=== PATIENT | male | born 1935 | race Caucasian/White ===

== ENCOUNTER → 2017-03-25 | Outpatient (CLI) | payer MEDICARE, BC ==
[~2017-03-25] MED LIST: ASPIR-LOW81 MG PO; ASPIRIN E.C. 8181 MG PO; CIPRO 250MG TA250 MG PO; CIPRO 500MG TA500 MG PO; COREG 6.256.25 MG/TA PO; FISH OIL CONC1000 MG PO; FLOMAX 0.40.4 MG/CAP PO; GLUCOPHAGE500 MG/TAB PO; HCTZ 25MG TAB25 MG PO; HCTZ 25MG25 MG PO; IBUPROFEN 200200 MG PO; LISINOPRIL20 MG PO; NORCO; OXYCODONE HCL10 MG PO; PRILOSEC 20MG20 MG PO; PYRIDIUM 100MG100 MG PO; SIMVASTATIN10 MG PO; VALIUM 2MG T2 MG/TAB PO; VITAMIN B12 PO; VITAMIN B121000 MCG PO; VITAMIN B12500 MCG PO; VITAMIN D1000 IU PO; VITAMIN D2000 I1 PO; ZESTRIL 20MG TA20 MG PO; ZOCOR 10MG10 MG PO; b 12
== END ==
LOC: COL.RAD 09:37
DX: I71.4 Abdominal aortic aneurysm, without rupture (principal); K44.9 Diaphragmatic hernia without obstruction or gangrene; J47.9 Bronchiectasis, uncomplicated; J84.10 Pulmonary fibrosis, unspecified; J94.8 Other specified pleural conditions; M47.816 Spondylosis without myelopathy or radiculopathy, lumbar region; M16.12 Unilateral primary osteoarthritis, left hip; Z96.641 Presence of right artificial hip joint; Z95.828 Presence of other vascular implants and grafts
CPT/HCPCS: Q9967

== ENCOUNTER 2017-11-11 12:58 | Day surgery (SDC) | payer MEDICARE, BC ==
[2017-11-11] VITALS (10 sets, daily range): BP systolic 115–164; BP diastolic 56–83; PULSE 59–85; TEMP 97.2–97.9
[~2017-11-11] VITALS: Ht 182.9 cm; Wt 143.2 kg
[~2017-11-11 12:58] MED LIST changes: +MASON NATURAL2000 IU PO; +VITAMIN B12 681 TAB PO; -VITAMIN B121000 MCG PO; -VITAMIN D1000 IU PO
[2017-11-11 13:53] LABS: BASO % 0.3 % (0.0-2.0); EOS # 0.1 (0.0-0.7); EOS % 1.1 % (0-4.0); GRAN # 3.7 (1.4-6.5); GRAN % 61.1 % (42.2-75.2); HEMATOCRIT 44.5 % (42.0-52.0); HEMOGLOBIN 15.2 g/dl (13.5-18.0); LYMPH # 1.3 (1.2-3.4); LYMPH % 20.5 % (20.0-51.0); MEAN CELL VOLUME 94 fl (80.0-100.0); MEAN CORPUSCULAR HEMOGLOBIN 32 pg (27.0-31.0); MEAN CORPUSCULAR HGB CONC 34 g/dl (33.0-37.0); MEAN PLATELET VOLUME 9.6 fl (7.4-10.4); MONO % 16.7 % (1.7-9.3); PLATELET COUNT 233 K/mm3 (130-400); RED BLOOD COUNT 4.76 M/mm3 (4.20-5.60); REDCELL DISTRIBUTION WIDTH-CV 13.3 % (11.5-14.5)
[2017-11-11] MEDS ORDERED: B-121000 MCG PO (14:58)
[2017-11-11] MEDS ORDERED: OMEGA-31 SGL PO (15:07)
[2017-11-12 01:22] VITALS: BP 123/62; PULSE 67; TEMP 98.4
[2017-11-12 05:27] VITALS: BP 138/65; PULSE 69; TEMP 98.6
[2017-11-12 09:43] VITALS: BP 169/85; PULSE 94; TEMP 97.6
== END 2017-11-12 11:20 | disposition home or self-care (01) ==
LOC: SDCO 12:58 → SURG 18:04 → SDCO 11-12 11:20
PROVIDERS: Urology
DX: N35.9 Urethral stricture, unspecified (principal); R39.12 Poor urinary stream; E78.5 Hyperlipidemia, unspecified; I25.10 Atherosclerotic heart disease of native coronary artery without angina pectoris; G47.33 Obstructive sleep apnea (adult) (pediatric); E11.42 Type 2 diabetes mellitus with diabetic polyneuropathy; I10 Essential (primary) hypertension; M19.90 Unspecified osteoarthritis, unspecified site; Z96.653 Presence of artificial knee joint, bilateral; Z96.641 Presence of right artificial hip joint; Z79.82 Long term (current) use of aspirin; Z82.49 Family history of ischemic heart disease and other diseases of the circulatory system; Z87.891 Personal history of nicotine dependence
CPT/HCPCS: OP; A9284; J0690; J1100; J2405; J2704; J3010; J3301; J7030

== ENCOUNTER 2018-10-20 11:38 | Inpatient (IN) | payer MEDICARE, BC ==
[~2018-10-20] VITALS: Ht 182.9 cm; Wt 119.2 kg
[~2018-10-20 11:38] MED LIST changes: +B-121000 MCG PO; +OMEGA-31 SGL PO
[2019-03-22] VITALS (13 sets, daily range): BP systolic 131–175; BP diastolic 72–90; PULSE 71–92; TEMP 97.5–98.6
--- NOTE | 2019-03-22 06:20 | NUR ---
admitted to room per at 0515, prepped for surgery without incident, explanation given to patient and his family for going to and returning from surgery, verbalizes understanding
--- NOTE | 2019-03-22 06:25 | NUR ---
to surgery per bed, report called to Jovon Ortega CRNA
--- NOTE | 2019-03-22 10:50 | NUR ---
returned to room from PACU per bed, awake and alert, IV infusing and placed on pump at 125ml/hr, O2 on at 3L/NC, velasquez cath patent draining clear light marco urine, aquacel dressing to left hip CD&I, ice in place, TESSA hose and SCDS on bilaterally, has sensation to top of thigh on the right and low abdomen on the left, is unable to move lower extremities, rolled to side and no wrinkles in linens or wires under patient, c/o some back pain and burning to left hip, then begins to doze, full assessment completed, see interventions for further info, taking sips of water and tolerates well
--- NOTE | 2019-03-22 11:00 | NUR ---
appears to be dozing when entered room resp quiet and easy
--- NOTE | 2019-03-22 11:15 | NUR ---
dozing between checks, arouses easily
--- NOTE | 2019-03-22 11:57 | NUR ---
has sensation down to right foot and beginning to have sensation to left foot, has gross motor movement bilateral lower extremities, repositioned in bed fro comfort, will provide pudding per his request and if tolerates will instruct on ordering regular food
--- NOTE | 2019-03-22 12:29 | NUR ---
had pudding and tolerated well, instructed on ordering regular food, is able to do ankle pumps bilaterally, family at bedside
--- NOTE | 2019-03-22 13:42 | NUR ---
had lunch and tolerated well, has full sensation and movement to bilateral lower extremities, Dr Craig was in to see patient
--- NOTE | 2019-03-22 14:31 | NUR ---
sleeps between checks, denies needs
--- NOTE | 2019-03-22 14:59 | NUR ---
SW met with the patient to discuss discharge plan. The patient lives in [place] with his , Emilie. He reports independence with ADLs and has a cane, walker, and wheelchair. The patient's PCP is Dr. Andrea Malave and he receives his medications at the [facility]. He reports no difficulties obtaining his meds. The patient does not have advanced directives in EMR, but he states that he does have them completed and at home. He states that his is his DPOA-HC. The patient reports that he plans to go to [facility] for post-acute rehab upon discharge. GEMMA presented and explained the patient choice form to the patient. The patient preferred 1) [facility] 2) [facility]. Patient choice form signed by the patient and he was provided a copy. GEMMA contacted and faxed a referral to both facilities. SW awaiting their screenings.
--- NOTE | 2019-03-22 16:00 | NUR ---
repositioned up in bed for comfort
--- NOTE | 2019-03-22 18:14 | NUR ---
appears to be sleeping, in bed with eyes closed, resp quiet and easy
--- NOTE | 2019-03-22 18:50 | NUR ---
bedside shift report given to KISHORE Proctor, will order supper now
--- NOTE | 2019-03-22 20:00 | NUR ---
Report received, assumed care for manufacturing shift supervisor. Assessment complete. Blood pressure reported from BOBBIN WASHER of 175/75-rechecked at this time-152/78. Denies pain. Aquacell dressing to left hip-C/D/I. Fresh ice pack applied. Plan of cre discussed for up out of bed with assistance this shift. Verbalizes understanding. Nevarez cath with clear yellow urine. Denies shortness of breathe, O2@3L/NC. D5 1/2 NS@125ml/hr to left hand 20g. SCDs and TEDS on. Denies questions or concerns. Call light within reach. Bed in low position/wheels locked. Will monitor.
--- NOTE | 2019-03-22 20:50 | NUR ---
C/O pain to left lower extremity-5/10-described as constant throbbing. CMS within normal limits-Olesya one tab given per dr order. Will monitor.
--- NOTE | 2019-03-22 23:00 | NUR ---
Up out of bed at this time with 2 assist. Ambulated approx 20 feet. Tolerated well.
[2019-03-23 04:56] VITALS: BP 121/55; PULSE 74; TEMP 98.4
--- NOTE | 2019-03-23 05:00 | NUR ---
IV fluids completed. INT at this time tolerating PO.
--- NOTE | 2019-03-23 06:51 | NUR ---
Report to KISHORE Ortega
[2019-03-23 06:52] LABS: HEMOGLOBIN 11.9 g/dl (13.5-18.0)
[2019-03-23 06:55] LABS: HEMATOCRIT 33.2 % (42.0-52.0)
--- NOTE | 2019-03-23 07:17 | NUR ---
REPORT FROM NICKY NOVAK.
[2019-03-23 07:47] VITALS: BP 136/64; PULSE 78; TEMP 97.9
--- NOTE | 2019-03-23 08:31 | NUR ---
PT UP IN BED FOR BREAKFAST. PAIN CONTROLLED WITH PO PAIN MEDS. MICHAUD CATHETER TO DD WITH NO KINKS. DR. SCHREIBER AND FAISAL BENTLEY IN TO SEE PATIENT THIS AM.
--- NOTE | 2019-03-23 10:31 | NUR ---
Initial visit; Patient thanked Hairspring Vibrator for letting him know he will be offered Holy Communion. Hairspring Vibrator offered God's blessings.
[2019-03-23 12:13] VITALS: BP 127/54; PULSE 67; TEMP 97.4
--- NOTE | 2019-03-23 16:24 | NUR ---
GEMMA faxed updates to Sb at [facility]. Patient was accepted for a skilled stay.
--- NOTE | 2019-03-23 16:34 | NUR ---
PT VOIDING AFTER REMOVAL OF CATHETER. XRAY COMPLETE AND NO ISSUES SEEN BY RADIOLOGY.
[2019-03-23 17:01] VITALS: BP 133/62; PULSE 80; TEMP 97.6
--- NOTE | 2019-03-23 18:57 | NUR ---
report to Renetta MANCERA,
[2019-03-23 19:10] VITALS: BP 108/51; PULSE 81; TEMP 98.1
[2019-03-23 23:50] VITALS: BP 106/50; PULSE 76; TEMP 98.2
[2019-03-24 03:52] VITALS: BP 125/58; PULSE 79; TEMP 97.6
--- NOTE | 2019-03-24 05:24 | NUR ---
Patient rested well overnight. Patient is alert and oriented while awake, answers questions appropriately. Patient ambulated with 1x assist with walker and gait belt prior to HS. PRN pain meds administered per order. Aquacel to left hip is CDI. Patient denies needs at this time, call light within reach.
--- NOTE | 2019-03-24 07:03 | NUR ---
REPORT FROM JAYA MANCERA.
[2019-03-24 07:26] VITALS: BP 135/61; PULSE 79; TEMP 98.2
--- NOTE | 2019-03-24 09:04 | NUR ---
PATIENT UP TO SHOWER WITH OT. DRESSING CHANGE COMPLETE, REDNESS SURRONDING NAPOLEONEL NOTED AND DR. SCHREIBER AWARE.
[2019-03-24 12:41] VITALS: BP 105/56; BP 135/61; PULSE 79; TEMP 98.2
[2019-03-24 17:02] VITALS: BP 118/57; PULSE 85; TEMP 97.6
--- NOTE | 2019-03-24 18:53 | NUR ---
REPOORT TO RUKHSANA NOVAK.
[2019-03-24 19:40] VITALS: BP 114/83; PULSE 85; TEMP 98.3
--- NOTE | 2019-03-24 19:40 | NUR ---
Pt. sitting up in chair at this time. Pt. is A&OX3, assessment complete. Dressing to rt. hip CDI. Pt. reports pain at a 5 on pain scale with ambulation. Pt. ambulated in the halls with GUARD MANAGER. Pt. denies further needs, call light within reach.
[2019-03-25 00:40] VITALS: BP 122/57; PULSE 79; TEMP 97.4
[2019-03-25 03:58] VITALS: BP 149/68; PULSE 81; TEMP 98.6
[2019-03-25 06:21] VITALS: BP 149/68; PULSE 81; TEMP 98.6
[2019-03-25] MEDS ORDERED: ASPI325T6 PO (06:37)
[2019-03-25] MEDS ORDERED: ULTRAM 50MG TAB50 MG PO (06:38)
[2019-03-25] MEDS ORDERED: TYLENOL 500MG500 MG PO (06:40)
--- NOTE | 2019-03-25 06:43 | NUR ---
resting in bed, bedside shift report received from Cody Mancilla
--- NOTE | 2019-03-25 07:20 | NUR ---
sitting up in bed watching TV, full assessment completed, see interventions for further info, denies needs, has ordered breakfast
[2019-03-25 07:52] VITALS: BP 131/71; PULSE 84; TEMP 98.5
--- NOTE | 2019-03-25 08:17 | NUR ---
up to bathroom and passing large amount of flatus, out of bathroom and into recliner
[2019-03-25] MEDS ORDERED: NORCO 325 MG-7.1 TAB PO (08:22)
--- NOTE | 2019-03-25 08:54 | NUR ---
ambulated out to [facility] with physical therapy for group exercises
--- NOTE | 2019-03-25 09:32 | NUR ---
ambulated back to room after therapy and remains up in recliner
--- NOTE | 2019-03-25 10:29 | NUR ---
resting in chair, denies needs
--- NOTE | 2019-03-25 10:30 | NUR ---
GEMMA met with patient about discharge to [facility] today 03/25 for a skilled stay. GEMMA presented IM to patient. He verbalized understanding and signed. Patient did not want a copy. GEMMA faxed discharge orders to [facility] and arranged transportation for 11:30am.
--- NOTE | 2019-03-25 11:02 | NUR ---
Follow-up visit; Patient thanked Manager Of Tax for looking in on him and keeping him in her prayers.
--- NOTE | 2019-03-25 12:15 | NUR ---
discharged per WC to Sushila [facility]
--- NOTE | 2019-03-25 12:33 | NUR ---
report called to Verna at [facility]
== END 2019-03-25 12:15 | DRG 470 ==
LOC: JCC 11-30 07:30
PROVIDERS: ADMIT Orthopaedic Surgery
PROC: 0SRB0JZ Replacement of Left Hip Joint with Synthetic Substitute, Open Approach (ICD-10-PCS; principal; 2019-03-22 07:30)
DX: M16.12 Unilateral primary osteoarthritis, left hip (principal); E11.42 Type 2 diabetes mellitus with diabetic polyneuropathy; H40.9 Unspecified glaucoma; Z96.653 Presence of artificial knee joint, bilateral; E66.01 Morbid (severe) obesity due to excess calories; N40.0 Benign prostatic hyperplasia without lower urinary tract symptoms; I25.10 Atherosclerotic heart disease of native coronary artery without angina pectoris; I10 Essential (primary) hypertension; K21.9 Gastro-esophageal reflux disease without esophagitis; Z68.35 Body mass index [BMI] 35.0-35.9, adult; Z79.82 Long term (current) use of aspirin; Z87.891 Personal history of nicotine dependence
CPT/HCPCS: A4314; A9284; C1713; C1776; J0690; J1100; J1170; J2250; J2270; J2405; J2704; J3010; J7030; J7120

== ENCOUNTER → 2019-03-11 | Outpatient (CLI) | payer MEDICARE, BC ==
[2019-03-11 15:09] LABS: HIV 1/2 Antibodies Non-Reactive; HIV-1p24 Antigen Non-Reactive
== END ==
LOC: COL.LAB 14:06
PROVIDERS: Orthopaedic Surgery
DX: Z01.812 Encounter for preprocedural laboratory examination (principal)

== ENCOUNTER 2020-04-13 08:33 | Day surgery (SDC) | payer MEDICARE, BC ==
[~2020-04-13] VITALS: Ht 185.4 cm; Wt 133.0 kg
[~2020-04-13 08:33] MED LIST changes: +ASPI325T6 PO; +MASON NATURAL1200 MG PO; +NORCO 325 MG-7.1 TAB PO; -OMEGA-31 SGL PO; +TYLENOL 500MG500 MG PO; +ULTRAM 50MG TAB50 MG PO
[2020-04-13] MEDS ORDERED: ASPIRIN E.C. 8181 MG PO (09:25)
[2020-04-13] MEDS ORDERED: VITAMIN C500 MG PO (09:30)
[2020-04-13 09:59] VITALS: BP 139/78; PULSE 64; TEMP 97.8
[2020-04-13 10:02] LABS: CALCIUM 8.8 mg/dL (8.4-10.2); CREATININE, serum 0.65 (0.66-1.25); POTASSIUM 4.4 mmol/L (3.4-5.0)
[2020-04-13 12:15] VITALS: BP 141/58; PULSE 59; TEMP 97.4
--- NOTE | 2020-04-13 12:15 | NUR ---
The patient arrived back to [place] [facility] from the recovery room at this time. The patient appears alert and oriented and denies any pain or nausea at this time. Post operative vital signs were started at this time. The patient requests to try a muffin and has no water from the recovery room. Call light is within reach. Will continue to monitor the patient.
[2020-04-13 12:30] VITALS: BP 131/69; PULSE 61
--- NOTE | 2020-04-13 12:30 | NUR ---
The patient appears to be resting comfortably on the cart at this time. The patient appears to be tolerating the muffin well. Vital signs appear stable. Will continue to monitor the patient.
[2020-04-13 12:45] VITALS: BP 145/85; PULSE 61
--- NOTE | 2020-04-13 12:45 | NUR ---
The patient has finished his first muffin and requests a second muffin at this time. Vital signs continue to appear stable. Call light remains within reach. Will continue to monitor the patient.
[2020-04-13 13:00] VITALS: BP 142/80; PULSE 66
--- NOTE | 2020-04-13 13:00 | NUR ---
The patient voices a desire to be discharged home and was instructed on leg bag care at this time. The patient's daughter was called to and is going to come pick the patient up in about 30 minutes.
--- NOTE | 2020-04-13 13:10 | NUR ---
Discharge instructions were reviewed with the patient at this time. The patient verbalized understanding and has no questions for the nurse at this time. The patient's IV to his right hand was removed and a pressure dressing was applied to the site. The nurse instructed the patient to get dressed and notify the staff when he is ready to be escorted out.
--- NOTE | 2020-04-13 13:27 | NUR ---
The patient was escorted out via wheelchair to a private vehicle by KISHORE Mills. The patient's belongings and discharge paperwork were sent with him. The patient's daughter is coming to take him home.
== END 2020-04-13 13:27 | disposition home or self-care (01) ==
LOC: SDCO
PROVIDERS: Nurse Anesthetist, Certified Registered
DX: N35.819 Other urethral stricture, male, unspecified site (principal); E11.9 Type 2 diabetes mellitus without complications; E78.5 Hyperlipidemia, unspecified; I10 Essential (primary) hypertension; M19.90 Unspecified osteoarthritis, unspecified site; I25.10 Atherosclerotic heart disease of native coronary artery without angina pectoris; I48.91 Unspecified atrial fibrillation; J44.9 Chronic obstructive pulmonary disease, unspecified; K21.9 Gastro-esophageal reflux disease without esophagitis; E11.42 Type 2 diabetes mellitus with diabetic polyneuropathy; Z79.01 Long term (current) use of anticoagulants; Z96.653 Presence of artificial knee joint, bilateral; Z79.82 Long term (current) use of aspirin; G47.33 Obstructive sleep apnea (adult) (pediatric); Z87.891 Personal history of nicotine dependence; Z96.643 Presence of artificial hip joint, bilateral
CPT/HCPCS: J0690; J2405; J2704; J3010; J7030

== ENCOUNTER 2020-05-15 12:09 | Inpatient (IN) | payer MEDICARE, BC ==
[~2020-05-15] VITALS: Ht 188 cm; Wt 130.9 kg
[2020-05-15] VITALS (152 sets, daily range): BP systolic 142; BP diastolic 101; PULSE 130; TEMP 99.3; O2SAT 87–100
[~2020-05-15 12:09] MED LIST changes: +VITAMIN C500 MG PO
[2020-05-15 12:43] LABS: HEMATOCRIT 39.4 % (42.0-52.0); HEMOGLOBIN 14.8 g/dl (13.5-18.0); MEAN CELL VOLUME 94 fl (80.0-100.0); MEAN CORPUSCULAR HEMOGLOBIN 35 pg (27.0-31.0); MEAN CORPUSCULAR HGB CONC 38 g/dl (33.0-37.0); MEAN PLATELET VOLUME 10.4 fl (7.4-10.4); PLATELET COUNT 228 K/mm3 (130-400); RED BLOOD COUNT 4.18 M/mm3 (4.20-5.60); REDCELL DISTRIBUTION WIDTH-CV 15.3 % (11.5-14.5)
[2020-05-15 12:54] LABS: ARTERIAL BLD GAS O2 SATURATION 95.9 % (92-100); ARTERIAL BLD GAS TCO2 CT 21.2; ARTERIAL BLOOD GAS BASE EXCESS -2.8 (-2-2); ARTERIAL BLOOD GAS HCO3 20.3 meq/L (22-26); ARTERIAL BLOOD GAS PCO2 30.9 mmHg (35-45); ARTERIAL BLOOD GAS PO2 75.1 mmHg (80-100); ARTERIAL BLOOD GAS pH 7.44 (7.35-7.45)
[2020-05-15 13:02] LABS: ALANINE AMINOTRANSFERASE 17 U/L (4-49); ALKALINE PHOSPHATASE 80 U/L (50-136); ANION GAP 11 mmol/L (7-16); AST,SGOT 38 U/L (15-37); BILIRUBIN,TOTAL 1.8 mg/dL (0.0-1.0); BLOOD UREA NITROGEN 16 mg/dL (9-20); CALCIUM 8.7 mg/dL (8.4-10.2); CARBON DIOXIDE 21 mmol/L (22-30); CHLORIDE 102 mmol/L (98-107); CREATININE, serum 0.96 (0.66-1.25); GLUCOSE 151 mg/dL (74-106); POTASSIUM 4.7 mmol/L (3.4-5.0); SODIUM 135 mmol/L (137-145); TOTAL PROTEIN 8.4 gm/dL (6.4-8.2)
[2020-05-15 13:13] LABS: C-REACTIVE PROTEIN 18.3 mg/dL (0.0-0.9); TROPONIN-I < 0.012 ng/mL (0.000-0.035)
[2020-05-15 13:14] LABS: BASO % 0.1 % (0.0-2.0); GRAN # 5.9 (1.4-6.5); GRAN % 67.5 % (42.2-75.2); LYMPH # 0.6 (1.2-3.4); LYMPH % 6.5 % (20.0-51.0); MONO # 2.1 (0.1-0.6); MONO % 24.3 % (1.7-9.3)
[2020-05-15 13:22] LABS: ANISOCYTOSIS 1+; BAND 3 % (0-10); LYMPHOCYTE 12 % (20.0-51.0); NEUTROPHILS 71 % (42.0-75.2); PLATELET ESTIMATE NORMAL (NORMAL)
--- NOTE | 2020-05-15 19:30 | NUR ---
Assisted patient to transfer into icu bed with ER nurse. Patient had some difficulty with turing and pivoting. Appeared to be in mild respiratory distress with elevated HR. Assisted to a more comfortable postition and assisted with bib-care. Stayed in room with patient until respiratory and heart rate improved. Call light left within reach. Will continue to monitor.
[2020-05-15 19:55] LABS: INR 1.4 (0.8-3.0)
[2020-05-15 19:58] LABS: PARTIAL THROMBOPLASTIN TIME 25.3 SECONDS (26.0-37.0)
[2020-05-15 20:30] LABS: C-REACTIVE PROTEIN 20.7 mg/dL (0.0-0.9)
--- NOTE | 2020-05-15 21:25 | NUR ---
Hospitalist notified of D-dimer results. Patient also reporting some left calf pain. No redness or swelling noted. Received order to administer first dose of lovenox now and continue BID. Hospitalist with make a decision if a chest CT is needed. Will call back if order is placed.
--- NOTE | 2020-05-15 22:26 | NUR ---
Patient has called multiple times for a sleeping pill and ice cream. Notified hospitalist; will order prn melatonin.
[2020-05-16] VITALS (447 sets, daily range): BP systolic 91–150; BP diastolic 58–92; PULSE 71–109; TEMP 97.5–100.1; O2SAT 74–100
--- NOTE | 2020-05-16 00:45 | NUR ---
Entered patient room to bring ice water. Patient alert and oriented. Previously patient reported left calf pain. Now reports pain is in left ankle. Ankle with examined has =1 edema and light purple discoloration around the ankle bone. No other abnormalities noted. Elevated extremities on a pillow for comfort. Will continue to monitor.
--- NOTE | 2020-05-16 01:43 | NUR ---
Currently resting in be; no complaints at this time will continue to monitor.
[2020-05-16 05:43] LABS: HEMATOCRIT 37.3 % (42.0-52.0); HEMOGLOBIN 13.2 g/dl (13.5-18.0); MEAN CELL VOLUME 93 fl (80.0-100.0); MEAN CORPUSCULAR HEMOGLOBIN 33 pg (27.0-31.0); MEAN CORPUSCULAR HGB CONC 35 g/dl (33.0-37.0); MEAN PLATELET VOLUME 10.3 fl (7.4-10.4); PLATELET COUNT 199 K/mm3 (130-400); REDCELL DISTRIBUTION WIDTH-CV 14.3 % (11.5-14.5)
[2020-05-16 05:51] LABS: CALCIUM 8.2 mg/dL (8.4-10.2); CREATININE, serum 0.98 (0.66-1.25); POTASSIUM 4.2 mmol/L (3.4-5.0)
[2020-05-16 06:01] LABS: BAND 7 % (0-10); LYMPHOCYTE 3 % (20.0-51.0); NEUTROPHILS 63 % (42.0-75.2)
[2020-05-16 06:02] LABS: PLATELET ESTIMATE NORMAL (NORMAL)
[2020-05-16 13:20] LABS: COLLECTION METHOD CLEAN CATCH
--- NOTE | 2020-05-16 13:43 | NUR ---
The patient is Covid positive and is in isolation. Thermometer Production Worker contacted the patient's daughter, Debbi # [phone] to complete initial intake. The [place] of [place] with his , Emilie. Debbi lives one mile away. Emilie has dementia and he is her caregiver. Debbi is providing assisting at this time. The patient uses a walker daily and is independent with ADLs. The patient's PCP is Dr. Malave and patient receives medications from [facility] pharmacy. He flower picker his medications from the drive through. Reshma was not sure if the patient has advanced directives. SW contacted the patient regarding advanced directives. The patient reports he does not have DPOA-HC and has one child (Reshma). He had a son but he in an accident. SW discussed Emilie's care. He states she get around fine. The plan is to return home when able. PT/OT to be ordered. GEMMA collaborated the above information with the patient's nurse.
[2020-05-16 14:01] LABS: MUCOUS Present /lpf; PH 5 (5-8); SQUAMOUS EPITHELIAL 0-2 /hpf; URINE APPEARANCE Hazy; URINE BACTERIA None Seen /hpf; URINE BILIRUBIN Negative (NEGATIVE); URINE BLOOD Negative (NEGATIVE); URINE COLOR Amber; URINE GLUCOSE Negative (NEGATIVE); URINE KETONE Trace (NEGATIVE); URINE LEUKOCYTE ESTERASE Negative (NEGATIVE); URINE NITRATE Negative (NEGATIVE); URINE PROTEIN(semi-quant) 1+ (NEGATIVE); URINE RBC 0-2 /hpf; URINE UROBILINOGEN >=4.0 mg/dL (NEGATIVE)
--- NOTE | 2020-05-16 14:38 | NUR ---
Report called to Medical. Pt to transfer to room 306 via WC on 3L Oxygen via NC.
--- NOTE | 2020-05-16 17:34 | NUR ---
PT ON 3L NC, PT COMFORTABLE IN ROOM, DENIES PAIN OR DISCOMFORT, DOES NOT HAVE BS CHECK ORDERED, PLEASANT, SOB ON EXERTION BUT NOT AT REST, USES URINAL, SPUTUM SAMPLE AT BEDSIDE.
--- NOTE | 2020-05-16 18:38 | NUR ---
Recieved report from KISHORE Castillo. Pt resting in room, denies needs at this time.
--- NOTE | 2020-05-16 20:05 | NUR ---
Assessment complete. Pt resting in bed. Nasal cannula removed by Chris OJEDA when this RN entered room. O2 sats in low 90s on room air. Pt reported needing to use restroom. Due to generalized weakness, 2 assist with gait belt and walker was needed to get pt to bedside commode. After getting to commode, O2 sats dropped to 87-88%, denied shortness of breath. Placed back on 1 L O2 until back in bed with sats of 91-92% during transfer. Once back in bed, sats at 95%, nasal cannula removed, sats remained 94-95% on room air. Reports mild pain to left ankle, PRN tylenol administered. Lungs clear to auscultation and pt denies shortness of breath at rest or with exertion. Unproductive cough noted. INTs to left hand and right AC clean, dry, intact, flush easily. Denies other needs at this time. Call light in reach.
--- NOTE | 2020-05-16 21:19 | NUR ---
CHECKED PTS O2 SATURATION AND IT WAS 97% ON 3 LPM. SHUT OFF 02 AND CHECKED PT SATURATIONS AGAIN, PT REMAINED IN MID 90'S FOR SATURATION THEREFORE, PT REMAINED OFF [address] PT BACK ON IF NEEDED THROUGHOUT THE NIGHT. NO DISTRESS NOTED AT THIS TIME.
[2020-05-17] VITALS (8 sets, daily range): BP systolic 93–125; BP diastolic 57–71; PULSE 74–83; TEMP 97.3–97.7
--- NOTE | 2020-05-17 06:07 | NUR ---
Pt slept on and off through shift. Titrated off O2 around 1999 last night. Has remained off O2 except for once when getting up to commode. Sats have remained at 93-95% on room air. Remains in Aflutter per monitor worker, rate in 70s throughout night.
--- NOTE | 2020-05-17 08:07 | NUR ---
PT IN ROOM, PLEASANT, AOX4, HELPED PT ORDER BREAKFAST, EDUCATED HOW TO USE PHONE, VITALS TAKEN, PT ON RA, ASSESSMENT PERFORMED, MEDICATIONS GIVEN, REPORTS PAIN 5/10 IN L ANKLE, NO OTHER NEEDS.
--- NOTE | 2020-05-17 10:18 | NUR ---
PT C/O CONSTIPATION. NORMALLY TAKES 2 COLACE AT HOME. PT ATTEMPTED VIA BEDSIDE COMMODE AND WAS UNABLE TO HAVE A BM. PT WAS A 2 ASSIST WITH WALKER. PT REPORTS FEELING STRONGER THAN HE HAS BEEN. PT ATE 100% OF BREAKFAST.
--- NOTE | 2020-05-17 11:25 | NUR ---
labs drawn from pt. vitals taken, bp low, rechecked, systolic still under 100. informed Dr. Megan Dr. stated if still under 100 systolic in 30min then give 500ml fluid bolus.
[2020-05-17 11:35] LABS: HEMOGLOBIN 12.5 g/dl (13.5-18.0); MEAN CELL VOLUME 96 fl (80.0-100.0); MEAN CORPUSCULAR HEMOGLOBIN 36 pg (27.0-31.0); MEAN CORPUSCULAR HGB CONC 38 g/dl (33.0-37.0); MEAN PLATELET VOLUME 11.2 fl (7.4-10.4); PLATELET COUNT 273 K/mm3 (130-400); RED BLOOD COUNT 3.46 M/mm3 (4.20-5.60); REDCELL DISTRIBUTION WIDTH-CV 15.2 % (11.5-14.5)
[2020-05-17 11:36] LABS: HEMATOCRIT 33.2 % (42.0-52.0)
[2020-05-17 11:42] LABS: CALCIUM 8.7 mg/dL (8.4-10.2); CREATININE, serum 0.92 (0.66-1.25); MAGNESIUM 2.2 mg/dL (1.6-2.3); POTASSIUM 4.3 mmol/L (3.4-5.0)
[2020-05-17 12:12] LABS: BASO % 0.2 % (0.0-2.0); GRAN # 9.8 (1.4-6.5); GRAN % 73.7 % (42.2-75.2); LYMPH # 0.9 (1.2-3.4); LYMPH % 6.8 % (20.0-51.0); MONO # 2.4 (0.1-0.6); MONO % 18.2 % (1.7-9.3)
[2020-05-17 12:21] LABS: BAND 23 % (0-10); LYMPHOCYTE 11 % (20.0-51.0); METAMYELOCYTE 1 % (0-0); NEUTROPHILS 53 % (42.0-75.2); PLATELET ESTIMATE NORMAL (NORMAL)
--- NOTE | 2020-05-17 12:23 | NUR ---
BP RECHECKED AT 120/65
--- NOTE | 2020-05-17 18:25 | NUR ---
pt remained on room air today. had hypotensive episode, held coreg at 1700 dose, pt aox4, good intake and output, iv meds hanging, pt reports pain in l ankle that is relieved with tylenol. pt eating well, pivot to bedside commode, still having c/o of constipation, pt reports feeling stronger than he did yesterday. worked with PT, no other needs.
--- NOTE | 2020-05-17 18:30 | NUR ---
Received report from Anna NOVAK. Pt sitting up in bed eating. Denies needs at this time. Call light in reach.
--- NOTE | 2020-05-17 19:35 | NUR ---
Assessment complete. Pt sitting up in bed talking on phone upon entering room. Zithromax infusion completed and stopped. Right AC INT flushed and clamped. Left hand INT clean, dry, intact and flushes easily. Pt denies chest pain or shortness of breath. Currently on room air with O2 sat of 93%. Heart rhythm atrial flutter per telemetry, rate 70s. Urinal emptied, output dark yellow and clear. Left ankle mildy swollen from incident prior to admission. Pt reports mild pain to left ankle at this time. Lung sounds clear all chand. Call light in reach. Will continue to monitor.
[2020-05-18] VITALS (7 sets, daily range): BP systolic 114–152; BP diastolic 72–566; PULSE 75–79; TEMP 97–97.6
--- NOTE | 2020-05-18 05:26 | NUR ---
Remained on room air throughout night with O2 sats of 92-95%. Reports improvement in strength. Requests PT come work with him more frequently today.
--- NOTE | 2020-05-18 09:03 | NUR ---
Pt awake and alert this morning, has C/O minor pain, tylenol given for relief. shift assessments complete, left Pt call light in reach, bed in lowest position.
--- NOTE | 2020-05-18 10:24 | NUR ---
SW received a phone call from the patient's immigration attorney, Katerine (ph#[phone], c.ph#[phone]). The patient would like to complete a new DPOA-HC and have the document notarized. The patient is COVID positive and a notary is not able to go into the patient's room to witness and stamp the document. Katerine reports that they are able to do a remote notary, via FaceTime on the patient's phone. GEMMA collaborated with the patient, his RN, and Katerine. The patient's RN, Salazar, plans to assist the patient with FaceTime and getting the document remotely notarized.
--- NOTE | 2020-05-18 16:03 | NUR ---
The patient was able to complete the DPOA-HC with his music therapy teacher, via [employer]. Katerine faxed the completed DPOA-HC to the medical unit. GEMMA placed the document in the patient's chart. The patient designated his daughter, Debbi. The patient is to tentatively d/c tomorrow, 05/19. GEMMA contacted the patient to follow up and review d/c plan. The patient plans to return home with his . PT/OT are recommending home health. GEMMA discussed this with the patient. The patient is agreeable to home healh through [facility]. GEMMA read the IM form outloud to the patient. The patient verbalized understanding and gave SW approval to sign the form on his behalf. GEMMA contacted and faxed a referral to Radha at [facility]. Radha reports that they are able to accept the patient for services. GEMMA contacted and reviewed the d/c plan with the patient's daughter, Debbi. Debbi was agreeable to the above plan. She had no other questions for GEMMA. GEMMA will need to fax d/c orders to [facility].
--- NOTE | 2020-05-18 19:29 | NUR ---
Pt in room today, Pt able to ambulate without assistance to the restroom and return to bed. Pt had a large bowel movement this afternoon, no other issues noted. VS have remained stable, maintaining good O2 sats on room air.
--- NOTE | 2020-05-18 19:50 | NUR ---
Received report from Salazar. Seen patient awake, lying in bed. He is alert and oriented. He is on room air. With INT on left hand and right AC. He is afebrile. He denies pain. Call light within reach.
[2020-05-19 03:58] VITALS: BP 145/85; PULSE 77; TEMP 97.1
--- NOTE | 2020-05-19 06:34 | NUR ---
EKG CAME OUT ACUTE RI. GAVE A COPY OF THE PRINTED EKG TO THE RN.
--- NOTE | 2020-05-19 06:38 | NUR ---
Patient had uneventful night. He is afebrile. He denies pain. He states he will go home today after his antibiotics.
[2020-05-19 08:13] LABS: GRAN # 3.9 (1.4-6.5); GRAN % 64.8 % (42.2-75.2); HEMATOCRIT 36.2 % (42.0-52.0); HEMOGLOBIN 13.1 g/dl (13.5-18.0); LYMPH # 0.9 (1.2-3.4); LYMPH % 14.8 % (20.0-51.0); MEAN CELL VOLUME 95 fl (80.0-100.0); MEAN CORPUSCULAR HEMOGLOBIN 34 pg (27.0-31.0); MEAN CORPUSCULAR HGB CONC 36 g/dl (33.0-37.0); MEAN PLATELET VOLUME 10.9 fl (7.4-10.4); MONO # 1.1 (0.1-0.6); MONO % 19.2 % (1.7-9.3); PLATELET COUNT 296 K/mm3 (130-400); RED BLOOD COUNT 3.82 M/mm3 (4.20-5.60); REDCELL DISTRIBUTION WIDTH-CV 15.4 % (11.5-14.5)
[2020-05-19 08:24] VITALS: BP 135/92; PULSE 81; TEMP 97.2
--- NOTE | 2020-05-19 09:17 | NUR ---
Pt awake and alert this morning, Pt has C/O minor pain, tylenol given for relief. Shift assessments complete, no issues noted, Pt currently on room air.
[2020-05-19] MEDS ORDERED: ELIQUIS 5MG PO (10:47)
[2020-05-19] MEDS ORDERED: DECADRON6 MG PO (10:48)
[2020-05-19 11:38] VITALS: BP 141/92; PULSE 80; TEMP 97.2
--- NOTE | 2020-05-19 15:03 | NUR ---
GEMMA informed by nursing staff that patient would be DCing 05-19-2020. DC documentation faxed to Micaela [phone]. GEMMA attempted to call [facility] to inform of patient's DC but there was not answer from recieving alliance party.
--- NOTE | 2020-05-19 18:11 | NUR ---
Pt discharged to home, discussed discharge instructions with Pt. Assisted derssing Pt, escorted Pt to ED entrance via WC, Pt left with family in private transportation.
== END 2020-05-19 17:50 | disposition home health service (06) | DRG 177 ==
LOC: COL.ER 12:09 → ICU 15:18 → MEDICAL 05-16 14:39
PROVIDERS: Emergency Medicine; ADMIT Internal Medicine
DX: U07.1 COVID-19 (principal); J96.01 Acute respiratory failure with hypoxia; I48.92 Unspecified atrial flutter; E87.2 Acidosis; K21.9 Gastro-esophageal reflux disease without esophagitis; Z66 Do not resuscitate; M25.572 Pain in left ankle and joints of left foot; I11.0 Hypertensive heart disease with heart failure; I50.9 Heart failure, unspecified; E11.9 Type 2 diabetes mellitus without complications; G89.29 Other chronic pain; Z96.641 Presence of right artificial hip joint; M54.9 Dorsalgia, unspecified; Z87.891 Personal history of nicotine dependence; Z79.01 Long term (current) use of anticoagulants; Z79.82 Long term (current) use of aspirin
CPT/HCPCS: 99223-AI; 99232-AI; 99233-AI; 99239; J0456; J0696; J1650; J1815; J7030; J7050; J8540

== ENCOUNTER 2020-06-25 20:07 | Observation (INO) | payer MEDICARE, BC ==
[~2020-06-25] VITALS: Ht 185.4 cm; Wt 130.9 kg
[~2020-06-25 20:07] MED LIST changes: +DECADRON6 MG PO; +ELIQUIS 5MG PO
[2020-06-25 21:16] LABS: BASO % 0.3 % (0.0-2.0); EOS # 0.1 (0.0-0.7); EOS % 1.8 % (0-4.0); GRAN # 3.3 (1.4-6.5); GRAN % 53.1 % (42.2-75.2); HEMATOCRIT 38.3 % (42.0-52.0); HEMOGLOBIN 12.7 g/dl (13.5-18.0); LYMPH # 1.6 (1.2-3.4); LYMPH % 25.5 % (20.0-51.0); MEAN CELL VOLUME 95 fl (80.0-100.0); MEAN CORPUSCULAR HEMOGLOBIN 32 pg (27.0-31.0); MEAN CORPUSCULAR HGB CONC 33 g/dl (33.0-37.0); MEAN PLATELET VOLUME 9.8 fl (7.4-10.4); MONO # 1.2 (0.1-0.6); MONO % 18.8 % (1.7-9.3); PLATELET COUNT 213 K/mm3 (130-400); RED BLOOD COUNT 4.02 M/mm3 (4.20-5.60); REDCELL DISTRIBUTION WIDTH-CV 15.3 % (11.5-14.5)
[2020-06-25 21:23] LABS: ALANINE AMINOTRANSFERASE 7 U/L (4-49); ALBUMIN 3.9 gm/dL (3.5-5.0); ALKALINE PHOSPHATASE 90 U/L (50-136); ANION GAP 6 mmol/L (7-16); AST,SGOT 20 U/L (15-37); BILIRUBIN,TOTAL 0.5 mg/dL (0.0-1.0); BLOOD UREA NITROGEN 13 mg/dL (9-20); CALCIUM 8.5 mg/dL (8.4-10.2); CARBON DIOXIDE 30 mmol/L (22-30); CHLORIDE 101 mmol/L (98-107); CREATININE, serum 0.74 (0.66-1.25); GLUCOSE 143 mg/dL (74-106); POTASSIUM 4.5 mmol/L (3.4-5.0); SODIUM 136 mmol/L (137-145); TOTAL PROTEIN 7.7 gm/dL (6.4-8.2)
[2020-06-25 21:39] LABS: TROPONIN-I < 0.012 ng/mL (0.000-0.035)
[2020-06-25 23:00] LABS: COLLECTION METHOD CLEAN CATCH
[2020-06-25 23:06] LABS: PH 7 (5-8); SQUAMOUS EPITHELIAL None Seen /hpf; URINE APPEARANCE Clear; URINE BACTERIA None Seen /hpf; URINE BILIRUBIN Negative (NEGATIVE); URINE BLOOD Negative (NEGATIVE); URINE COLOR Yellow; URINE GLUCOSE Negative (NEGATIVE); URINE KETONE Negative (NEGATIVE); URINE LEUKOCYTE ESTERASE Negative (NEGATIVE); URINE NITRATE Negative (NEGATIVE); URINE PROTEIN(semi-quant) Negative (NEGATIVE); URINE RBC 0-2 /hpf; URINE UROBILINOGEN Negative (NEGATIVE)
[2020-06-26 10:26] LABS: MEAN CELL VOLUME 95 fl (80.0-100.0); MEAN CORPUSCULAR HEMOGLOBIN 31 pg (27.0-31.0); MEAN CORPUSCULAR HGB CONC 32 g/dl (33.0-37.0); MEAN PLATELET VOLUME 9.8 fl (7.4-10.4); PLATELET COUNT 199 K/mm3 (130-400); RED BLOOD COUNT 3.88 M/mm3 (4.20-5.60); REDCELL DISTRIBUTION WIDTH-CV 15.3 % (11.5-14.5)
[2020-06-26 10:40] LABS: CALCIUM 8.6 mg/dL (8.4-10.2); CREATININE, serum 0.68 (0.66-1.25); POTASSIUM 4.4 mmol/L (3.4-5.0)
[2020-06-26 10:51] LABS: BAND 7 % (0-10); EOSINOPHIL 2 % (0-4); LYMPHOCYTE 19 % (20.0-51.0); NEUTROPHILS 59 % (42.0-75.2); PLATELET ESTIMATE NORMAL (NORMAL)
[2020-06-26 11:09] LABS: TSH w REFLEX 1.74 uIU/mL (0.465-4.680)
--- NOTE | 2020-06-26 17:18 | NUR ---
Pt arrives to medical unit rm [id number] from ED via stretcher, transfers to bed with standby assist. Pt A&O x 4, reports slight dizziness, but improved from arrival to ED. Water and urinal provided. No further needs reported. Call light in reach.
[2020-06-26 17:59] VITALS: BP 159/80; PULSE 71; TEMP 97.7
[2020-06-26 19:39] VITALS: BP 155/75; PULSE 65; TEMP 98.2
--- NOTE | 2020-06-26 20:30 | NUR ---
Initial shift assessment done- states having pain all over-arthritis type pain. Denies need for pain meds. IV site R/FA with NS at 100cc/hr. Pt denies dizziness/vertigo. pt voiding per urinal-understands to call for assistance before getting up-
[2020-06-26 23:35] VITALS: BP 157/85; PULSE 74; TEMP 97.3
[2020-06-27 03:34] VITALS: BP 141/72; PULSE 71; TEMP 97.5
--- NOTE | 2020-06-27 06:23 | NUR ---
Quiet night- did get Tylenol x1 for "pain all over", denies any dizziness/or vertigo
[2020-06-27 07:28] VITALS: BP 147/90; PULSE 69; TEMP 98
--- NOTE | 2020-06-27 09:09 | NUR ---
Assessment complete. Patient sitting up at side of bed for breakfast. Reports a headache and dizziness at this time. PRN meclizine and tylenol were provided for this. Otherwise patient seems to be in good spirits. Bilateral lower extremitites are discolored but no pain or discomfort with palpation, patient states this is normal as he has neuropathy.IV fluids running at this time. No other needs were expressed at this time. Patient knows and is willing to call prior to getting up. No other needs were expressed. Call light is in reach.
--- NOTE | 2020-06-27 10:04 | NUR ---
Initial visit; Patient thanked Retail Personal Banker for looking in on him and offering God's blessings.
[2020-06-27 10:59] VITALS: BP 136/93; PULSE 68; TEMP 97.7
--- NOTE | 2020-06-27 15:42 | NUR ---
Patient left the floor at this time. Discharge instructions were discussed. No further questions or concerns were expressed.
== END 2020-06-27 15:43 | disposition home or self-care (01) ==
LOC: COL.ER 20:24 → MEDICAL 06-26 14:40
PROVIDERS: Emergency Medicine; Nurse Practitioner Family; ADMIT Student in an Organized Health Care Education/Training Program
DX: R55 Syncope and collapse (principal); I16.0 Hypertensive urgency; E78.5 Hyperlipidemia, unspecified; I48.91 Unspecified atrial fibrillation; K21.9 Gastro-esophageal reflux disease without esophagitis; G62.9 Polyneuropathy, unspecified; Z86.19 Personal history of other infectious and parasitic diseases; Z66 Do not resuscitate; Z79.01 Long term (current) use of anticoagulants; M19.90 Unspecified osteoarthritis, unspecified site; I71.4 Abdominal aortic aneurysm, without rupture; Z96.653 Presence of artificial knee joint, bilateral; Z96.641 Presence of right artificial hip joint; Z87.891 Personal history of nicotine dependence
CPT/HCPCS: G0378; J1650; J2060; J2405; J7030